=== PATIENT | male | born 2000 | race African-American/Black ===

== ENCOUNTER 2023-10-26 19:01 | Emergency (ER) | payer SELFPAY ==
[2023-10-26 19:08] VITALS: BP 146/93; PULSE 66; RESP 18; TEMP 98.6; BMI 25.9
[2023-10-26 20:53] LABS: BASO % 0.7 % (0-2.0); HEMATOCRIT 46.1 % (35.4-49); HEMOGLOBIN 15.6 GM/dL (11.7-16.9); LYMPH % 32.4 % (8-40); MCH 28.8 pg (25.7-33.7); MCHC 33.9 g/dl (32.0-35.9); MEAN PLT VOLUME 8.8 fl (7.5-11.1); MONO % 8.8 % (3.8-10.2); NEUT % 57.1 % (42.8-82.8); PLATELET COUNT 242 10^3/uL (134-434); RBC 5.42 M/mm3 (4.00-5.60); RDW 13.2 % (11.9-15.9); WHITE BLOOD COUNT 5.9 K/mm3 (4.0-10.0)
[2023-10-26 21:01] LABS: INR 1.06 (0.83-1.09); PROTHROMBIN TIME (PATIENT) 12.2 SEC (9.7-13.0)
[2023-10-26 21:03] LABS: ACTIVATED PTT 34.6 SECONDS (25.2-36.5)
[2023-10-26 21:10] LABS: POTASSIUM 3.9 mmol/L (3.5-5.1)
[2023-10-26 21:12] LABS: CALCIUM 9.3 mg/dL (8.5-10.1)
[2023-10-26 21:13] LABS: ALBUMIN 3.9 g/dl (3.4-5.0); BLOOD UREA NITROGEN 11.1 mg/dL (7-18)
[2023-10-26 21:16] LABS: CREATININE 1.2 mg/dL (0.55-1.3)
[2023-10-26 21:17] LABS: BILIRUBIN,TOTAL 0.3 mg/dL (0.2-1); TOT PROT 6.8 g/dl (6.4-8.2)
== END 2023-10-26 22:02 | disposition home or self-care (01) ==
LOC: JER 19:01
DX: K64.9 Unspecified hemorrhoids (principal)
CPT/HCPCS: 36415; 80053; 82272; 85025; 85610; 85730; 86850; 86900; 86901; 99283-25